=== PATIENT | male | born 1995 | race Caucasian/White ===

== ENCOUNTER 2021-06-22 20:45 | Emergency (ER) | payer OTHER ==
[2021-06-23] MEDS ORDERED: EPINEPHRIN0.3 MG/0.3 IM (00:02)
[2021-06-23] MEDS ORDERED: PREDNISONE 20MG20 MG PO (00:02)
== END 2021-06-23 00:10 | disposition home or self-care (01) ==
LOC: FER 20:45
DX: T78.1XXA Other adverse food reactions, not elsewhere classified, initial encounter (principal); Z91.010 Allergy to peanuts; Z88.8 Allergy status to other drugs, medicaments and biological substances; Z28.311 Partially vaccinated for COVID-19
CPT/HCPCS: J1200; J2930; J7030